=== PATIENT | female | born 2000 | race Caucasian/White ===

== ENCOUNTER 2021-08-06 04:54 | Emergency (ER) | payer OTHER, SELFPAY ==
[2021-08-06] VITALS (7 sets, daily range): BP systolic 102–154; BP diastolic 62–89; PULSE 74–96; RESP 16–19; TEMP 37.2; O2SAT 97–100
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
--- NOTE | 2021-08-06 05:12 | ECG_ITS ---
Measurements Intervals [place] Rate: 77 P: 65 DE: 135 QRS: 41 QRSD: 94 T: 46 QT: 391 QTc: 445 Interpretive Statements SINUS RHYTHM WITH SINUS ARRHYTHMIA BASELINE ARTIFACT- I, II, AVR, AVL, V1 NORMAL ECG Electronically Signed On 08-06-2021 8:45:05 CDT by Josiah Toney D.O.
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
[2021-08-06] MEDS: SODIUM CHLORIDE 0.9% IV 1,000 ML 999 ML IV CONT (06:03)
[2021-08-06 06:57] LABS: Basophils Percent Auto 0.2 % (0.2-1.2); Hematocrit 40.4 % (37.0-47.0); Hemoglobin 13.4 g/dL (12.0-15.0); Immature Granulocyte Absolute 0.09 K/mm3 (0.00-0.031); Immature Granulocyte Percent A 0.5 % (0-0.5); Lymphocytes Absolute Auto 0.98 K/mm3 (0.9-3.2); Lymphocytes Percent Auto 5.5 % (18.3-44.2); Mean Corpuscular HGB Conc 33.2 g/dl (32-36); Mean Corpuscular Hemoglobin 29.8 pg (26-34); Mean Platelet Volume 10.1 fl (7.4-10.4); Monocytes Absolute Auto 1.1 K/mm3 (0.1-0.6); Monocytes Percent Auto 6.4 % (2.6-8.5); Neutrophils Absolute Auto 15.6 K/mm3 (1.3-6.7); Neutrophils Percent Auto 87.4 % (45.5-73.1); Platelet Count Result 284 k/mm3 (150-375); Red Blood Count 4.49 M/mm3 (4.2-5.4); Red Cell Distribution Width 12.2 % (11.5-14.5); White Blood Count 17.9 K/mm3 (4.5-10.0)
--- NOTE | 2021-08-06 06:58 | PC.NURSE ---
CT scan notified about test results, pt okay for imaging.
[2021-08-06 07:05] LABS: INR 1.1; Prothrombin Time 13.6 Seconds (11.1-14.7)
[2021-08-06 07:06] LABS: Partial Thromboplastin Time 25.4 SECONDS (22.3-36.8)
[2021-08-06 07:10] LABS: Alanine Aminotransferase 10 U/L (4-35); Albumin Level 4.3 g/dL (3.7-5.6); Alkaline Phosphatase 73 U/L (45-116); Anion Gap 9 mmol/L (8-16); Aspartate Amino Transferase 19 U/L (14-36); Bilirubin,Total 0.3 mg/dL (0.2-1.3); Blood Urea Nitrogen 18 mg/dL (8-21); Calcium 9.2 mg/dL (8.9-10.7); Carbon Dioxide 24 mmol/L (22-30); Chloride 106 mmol/L (98-107); Estimated Glomerular Filt Rate > 60; Glucose 120 mg/dL (65-110); Lipase 29 U/L (23-300); Potassium 3.3 mmol/L (3.4-5.0); Sodium 139 mmol/L (134-143)
[2021-08-06 07:45] LABS: Amphetamine Screen Urine Negative (Negative); Barbiturate Screen Urine Negative (Negative); Benzodiazepines Screen Urine Negative (Negative); Cannabinoid Screen Urine Positive (Negative); Cocaine Screen Urine Negative (Negative); Methadone Screen Urine Negative (Negative); Opiate Screen Urine Negative (Negative); Phencyclidine Screen Urine Negative (Negative)
== END 2021-08-06 09:02 | disposition home or self-care (01) ==
PROVIDERS: Emergency Provider Emergency Medicine; PCP Family Medicine
DX: S49.92XA Unspecified injury of left shoulder and upper arm, initial encounter (principal); S80.12XA Contusion of left lower leg, initial encounter; S16.1XXA Strain of muscle, fascia and tendon at neck level, initial encounter; V48.6XXA Car passenger injured in noncollision transport accident in traffic accident, initial encounter
CPT/HCPCS: 36415; 70450; 71260; 72125; 73030; 73590; 74177; 80053; 80307; 81025; 83690; 85025; 85610; 85730; 93005; 96365; 99284; J0131; J7030; Q9967